=== PATIENT | female | born 1985 | race Caucasian/White ===

== ENCOUNTER 2021-12-10 13:17 | Emergency (ER) | payer SELFPAY ==
[2021-12-10] MEDS ORDERED: Ketorolac Tromethamine 30 MG/ML VIAL ONE (14:13)
[2021-12-10] MEDS ORDERED: Dexamethasone 10 MG/ML VIAL ONE (14:14)
== END 2021-12-10 14:25 | disposition home or self-care (01) ==
LOC: BURERS 13:17
DX: U07.1 COVID-19 (principal); F17.210 Nicotine dependence, cigarettes, uncomplicated
CPT/HCPCS: 87804; 96372; 99283; J1100; J1885; U0003; U0005

== ENCOUNTER 2022-06-09 13:32 | Emergency (ER) | payer BC | END 2022-06-09 14:47 | disposition home or self-care (01) | LOC: BURERS 13:32 | DX: J06.9 Acute upper respiratory infection, unspecified (principal); F17.210 Nicotine dependence, cigarettes, uncomplicated | CPT/HCPCS: 99283 ==

== ENCOUNTER 2023-01-16 08:34 | Emergency (ER) | payer BC, OTHER | END 2023-01-16 09:09 | disposition home or self-care (01) | LOC: BURERS 08:34 | DX: S93.402A Sprain of unspecified ligament of left ankle, initial encounter (principal); S86.019A Strain of unspecified Achilles tendon, initial encounter; F17.210 Nicotine dependence, cigarettes, uncomplicated; W20.8XXA Other cause of strike by thrown, projected or falling object, initial encounter ==